=== PATIENT | female | born 1955 ===

== ENCOUNTER 2024-08-19 12:37 | Observation (INO) ==
[2024-08-19 13:59] LABS: Hematocrit 41.2 % (35-45); Hemoglobin 13.7 g/dL (11.5-14.3); Mean Corpuscular Hemoglobin 30.3 pg (27-33); Mean Corpuscular Hgb Conc 33.3 g/dL (31-36); Mean Corpuscular Volume 90.9 fL (80-97); Red Blood Count 4.53 10^6/uL (3.63-4.92); Red Cell Distribution Width 13.6 % (12-17); White Blood Count 5.1 10^3/uL (3.8-11.8)
[2024-08-19 14:37] LABS: ALT 9 U/L (7-52); AST 25 U/L (13-39); Albumin 3.9 g/dL (3.5-5.7); Albumin/Globulin Ratio 1.3 (1-3); Alcohol, S < 13 mg/dL (<13); Alkaline Phosphatase 50 U/L (35-149); Anion Gap 4 mmol/L (2-16); Blood Urea Nitrogen 14 mg/dL (6-24); CO2 Carbon Dioxide 40 mmol/L (22-32); Calcium 9.2 mg/dL (8.6-10.3); Chloride 94 mmol/L (101-111); Creatinine, Serum 0.54 mg/dL (0.51-0.95); Globulin 2.9 g/dL (2-4); Glucose 116 mg/dL (70-100); Magnesium 1.8 mg/dL (1.9-2.7); Potassium 3.1 mmol/L (3.5-5.0); Sodium 138 mmol/L (135-145); Total Bilirubin 0.7 mg/dL (0.2-1.0); Total Protein 6.8 g/dL (6.4-8.9); eGFR CKD-EPI 100.8 (>60)
[2024-08-19 14:44] LABS: ABS Lymphocytes 0.8 10^3/uL (1.0-4.8); ABS Monocytes 0.5 10^3/uL (0.0-0.9); ABS Neutrophils 3.8 10^3/uL (1.5-7.6); ABS Nucleated RBC 0.01 10^3/ul; Eosinophil % 0.4 %; Lymphocyte % 15.2 %; Mean Platelet Volume 7.9 fL (7.5-11.2); Nucleated Red Blood Cells % 0.2 %/100WBC (0.0-0.8); Platelet Count 270 10^3/uL (150-450)
[2024-08-19] MEDS: Potassium Chlor 20 meq TAB.ER PO ONE (15:29)
[2024-08-19] MEDS: Potassium EFFERVES 25 meq TAB PO ONE (15:46)
[2024-08-19] MEDS ORDERED: Morphine ORAL.SOLN 10 mg 2 mg/ml UDC 5 ml (10 mg) PO PRN (17:03)
[2024-08-19] MEDS: POTASSIUM CHLORIDE IVPB SCH (18:35)
[2024-08-19] MEDS: LACTATED RINGERS IVPB SCH (18:35)
[2024-08-19] MEDS: Heparin 5000 UNITS/ML 1 mL VIAL SUBCUT SCH (18:35)
[2024-08-19] MEDS: Magnesium Sulfate 2 gm BAG 2 GM/50 ML BAG IVPB ONE (19:00)
[2024-08-19] MEDS: Enoxaparin 30 MG/0.3 ML SYR SUBCUT SCH (19:00)
[2024-08-19] MEDS ORDERED: Albuterol/Ipratropium NEB.SOL (2.5/0.5 MG) 3 ML NEB.SOLN INH PRN (19:32)
[2024-08-19 21:34] LABS: Platelet Count 253 10^3/uL (150-450)
[2024-08-19 21:35] LABS: ABS Eosinophils 0.1 10^3/uL (0.0-0.5); ABS Lymphocytes 0.6 10^3/uL (1.0-4.8); ABS Monocytes 0.4 10^3/uL (0.0-0.9); ABS Neutrophils 4.2 10^3/uL (1.5-7.6); ABS Nucleated RBC 0.01 10^3/ul; Hematocrit 41.1 % (35-45); Hemoglobin 13.8 g/dL (11.5-14.3); Lymphocyte % 11.7 %; Mean Corpuscular Hemoglobin 30.9 pg (27-33); Mean Corpuscular Hgb Conc 33.7 g/dL (31-36); Mean Corpuscular Volume 91.8 fL (80-97); Nucleated Red Blood Cells % 0.1 %/100WBC (0.0-0.8); Red Blood Count 4.47 10^6/uL (3.63-4.92); Red Cell Distribution Width 13.4 % (12-17); White Blood Count 5.3 10^3/uL (3.8-11.8)
[2024-08-19 21:36] LABS: Mean Platelet Volume 8.1 fL (7.5-11.2)
[2024-08-19 21:37] LABS: INR 1.04 (0.85-1.14)
[2024-08-19] MEDS: methylPREDNISolone SOD SUCC 40 mg/ml 1 ml VIAL IV ONE (23:08)
[2024-08-19] MEDS: Azithromycin 500 mg/250 ml NS 500 MG/250 ML BAG IVPB SCH (23:09)
[2024-08-19] MEDS: Morphine ER 30 mg TAB ** extended release PO SCH (23:15)
[2024-08-20] MEDS: Azithromycin 500 mg/250 ml NS 500 MG/250 ML BAG IVPB SCH (01:08)
[2024-08-20 06:46] LABS: Hematocrit 41.2 % (35-45); Hemoglobin 13.5 g/dL (11.5-14.3); Mean Corpuscular Hemoglobin 30.4 pg (27-33); Mean Corpuscular Hgb Conc 32.8 g/dL (31-36); Mean Corpuscular Volume 92.7 fL (80-97); Red Blood Count 4.44 10^6/uL (3.63-4.92); Red Cell Distribution Width 13.7 % (12-17); White Blood Count 4.9 10^3/uL (3.8-11.8)
[2024-08-20 06:49] LABS: Calcium 8.5 mg/dL (8.6-10.3); Creatinine, Serum 0.5 mg/dL (0.51-0.95); Potassium 5.2 mmol/L (3.5-5.0); eGFR CKD-EPI 102.7 (>60)
[2024-08-20 08:42] LABS: ABS Lymphocytes 0.4 10^3/uL (1.0-4.8); ABS Monocytes 0.1 10^3/uL (0.0-0.9); ABS Neutrophils 4.4 10^3/uL (1.5-7.6); Eosinophil % 0.1 %; Mean Platelet Volume 7.9 fL (7.5-11.2); Platelet Count 298 10^3/uL (150-450)
[2024-08-20 09:19] VITALS: BP 105/68
[2024-08-20] MEDS: CMC:Cyclosporine 0.05% OPHTH (NF) 0.4 ML VIAL BOTH EYES SCH (12:24)
== END 2024-08-20 13:15 | disposition home or self-care (01) ==
LOC: EDHOLD 12:37 → ED 12:37 → MED 19:59
PROVIDERS: ADMIT Internal Medicine; ATTEND Internal Medicine